=== PATIENT | male | born 1990 | race American Indian/Alaskan Native ===

== ENCOUNTER 2016-09-09 09:10 | Emergency (ER) | payer SELFPAY ==
[2016-09-09] MEDS ORDERED: KEPPRA PO ONE (09:38)
--- NOTE | 2016-09-09 09:42 | Emergency Department Report ---
HPI - General Chief Complaint: Seizure Time Seen by Provider: 09/09/16 09:29 - HPI HPI: This is a 26-year-old -[place] male who presents to the emergency department with complaint of a probable seizure this morning. Patient says that he was sleeping and then "I was out of it and when I woke up EMS was there. " Patient says that he has a history of one previous seizure last summer and was on some seizure medication but does not take it on a regular basis and had never followed up with a primary care doctor or neurologist at that time. Patient admits to biting his tongue. It is unknown how long he was "out" or had a postictal state. Patient now says he feels mostly back to baseline with a slight headache. Patient says that there was some marijuana smoked last night but otherwise no other illicit drugs and no alcohol abuse. He went to sleep without any complaints or symptoms and woke up with this probable seizure. He does not currently have a primary care doctor. He denies any other past medical history. ED Past Medical Hx - Past Medical History Previous Medical History?: Yes Hx Seizures: Yes - Surgical History Past Surgical History?: No - Social History Smoking Status: Never Smoker Substance Use Type: None - Medications Home Medications: Home Medications Medication Instructions Recorded Confirmed Last Taken Type No Known Home Medications [No 09/09/16 09/09/16 Unknown History Reported Home Medications] ED Review of Systems ROS: Stated complaint: SEIZURE Other details as noted in HPI Comment: All other systems reviewed and negative Constitutional: denies: chills, fever Eyes: denies: eye pain, eye discharge, vision change ENT: other (tongue laceration). denies: ear pain, throat pain Respiratory: denies: cough, shortness of breath, wheezing Cardiovascular: denies: chest pain, palpitations Gastrointestinal: denies: abdominal pain, nausea, diarrhea Genitourinary: denies: urgency, dysuria Musculoskeletal: denies: back pain, joint swelling, arthralgia Skin: denies: rash, lesions Neurological: headache, other (seizure). denies: weakness Physical Exam - Physical Exam Vital Signs: Vital Signs 09/09/16 09/09/16 09:15 09:34 Temperature 98.4 F Pulse Rate 90 Respiratory 18 16 Rate Blood Pressure 119/82 O2 Sat by Pulse 99 Oximetry Physical Exam: GENERAL: The patient is well-developed well-nourished. HEENT: Normocephalic. Atraumatic. Extraocular motions are intact. Patient has moist mucous membranes. Pupils equal reactive to light bilaterally. No nystagmus. Patient has a 1 cm tongue laceration to the anterior right tongue. It is linear without much of a gap and does not reach the edge of the tongue. No current bleeding. Oropharynx is clear. NECK: Supple. Trachea is midline. CHEST/LUNGS: Clear to auscultation. There is no respiratory distress noted. HEART/CARDIOVASCULAR: Regular. There is no tachycardia. There is no gallop rub or murmur. ABDOMEN: Abdomen is soft, nontender. Patient has normal bowel sounds. There is no abdominal distention. SKIN: There is no rash. There is no edema. There is no diaphoresis. NEURO: The patient is awake, alert, and oriented. The patient is cooperative. The patient has no focal neurologic deficits. The patient has normal speech and gait. Cranial nerves II through XII grossly intact. No pronator drift. MUSCULOSKELETAL: There is no tenderness or deformity. There is no limitation range of motion. There is no evidence of acute injury. Muscle strength 5 out of 5 upper and lower extremity bilaterally. ED Course Vital Signs 09/09/16 09/09/16 09:15 09:34 Temperature 98.4 F Pulse Rate 90 Respiratory 18 16 Rate Blood Pressure 119/82 O2 Sat by Pulse 99 Oximetry ED Medical Decision Making - Lab Data Result diagrams: 09/09/16 09:42 09/09/16 09:42 - EKG Data -: EKG Interpreted by Ok EKG shows normal: sinus rhythm, axis, intervals, QRS complexes, ST-T waves Rate: normal - EKG Data When compared to previous EKG there are: previous EKG unavailable Interpretation: normal EKG - Medical Decision Making 26-year-old male presents the emergency department after a seizure this morning. Patient has a history of at least one previous seizure the summer and had a negative CT head at that time in [place]. Patient has been awake and alert, AAO 3 since being in the emergency department and there has been no further seizure activity. Patient's labs have been mostly unremarkable other than some mild hyperkalemia. It is not a significant level but it is above normal so the patient was given a low dose of Kayexalate. There are no signs of infection, renal insufficiency, glucose abnormalities or thyroid dysfunction. Patient does have a tongue laceration but it does not appear to be infected and there does not appear to be any need for suturing at this time as there is no significant gap or decrease in his function. We discussed staying away from foods that are high in acid content, spicy, or foods that have small seeds that could get stuck. The patient already has a full prescription of the Keppra he is supposed to take at home. He was given multiple referrals for primary care clinics as well as 1 neurologist for follow- up regarding his seizures. We discussed staying away from alcohol and any illicit drugs as it decreases his seizure threshold. He will return to the ER with any worsening of his symptoms or any acute distress. - Differential Diagnosis seizure, TIA, substance abuse Critical Care Time: No Critical care attestation.: If time is entered above; I have spent that time in minutes in the direct care of this critically ill patient, excluding procedure time. ED Disposition Clinical Impression: Seizure, Hyperkalemia Tongue laceration Qualifiers: Encounter type: initial encounter Qualified Code(s): S01.512A - Laceration without foreign body of oral cavity, initial encounter Disposition: DISCHARGED TO HOME OR SELFCARE Is pt being admited?: No Does the pt Need Aspirin: No Condition: Stable Instructions: Recurrent Seizures Adult (ED), Epilepsy (ED), Hyperkalemia (ED) Additional Instructions: You've been given multiple referrals for primary care clinics in the area that have regular physicians for follow-up so you can establish care. I have also given you a referral for a local neurologist to follow up regarding your seizures. Please restart taking your Keppra and take it as prescribed compliantly. Any type of alcohol or drug use will decrease your seizure threshold. Return to the emergency department with any worsening of your symptoms or any acute distress. Referrals: PRIMARY CARE, [Primary Care Provider] - 3-5 Days MAGALI DENSON MD [Staff Physician] - 3-5 Days [facility] [Outside] - 3-5 Days [facility] [Outside] - 3-5 Days [facility] [Outside] - 3-5 Days Time of Disposition: 11:17
[2016-09-09 09:52] LABS: Basophils % (Auto) 0.6 % (0.0-1.8); Eosinophils % (Auto) 2.2 % (0.0-4.3); Hematocrit 47.5 % (35.5-45.6); Hemoglobin 15.3 gm/dl (11.8-15.2); Mean Corpuscular HGB Conc 32 % (32-34); Mean Corpuscular Hemoglobin 26 pg (28-32); Mean Corpuscular Volume 82 fl (84-94); Platelet Count 220 K/mm3 (140-440); Red Cell Distribution Width 14.9 % (13.2-15.2); White Blood Count 6.6 K/mm3 (4.5-11.0)
[2016-09-09 10:13] LABS: Alanine Aminotransferase 14 units/L (7-56); Albumin 4.4 g/dL (3.9-5); Albumin/Globulin Ratio 1.5 %; Alkaline Phosphatase 59 units/L (35-129); Anion Gap 21 mmol/L; Bilirubin,Total 0.3 mg/dL (0.1-1.2); Blood Urea Nitrogen 12 mg/dL (9-20); Calcium 9.6 mg/dL (8.4-10.2); Carbon Dioxide 24 mmol/L (22-30); Chloride 102.8 mmol/L (98-107); Creatine Kinase 522 units/L (55-170); Glucose 102 mg/dL (75-100); Potassium 5.3 mmol/L (3.6-5.0); Sodium 142 mmol/L (137-145); Total Protein 7.4 g/dL (6.3-8.2)
[2016-09-09] MEDS ORDERED: KAYEXALATE PO ONE (10:16)
[2016-09-09] MEDS ORDERED: TYLENOL PO ONE (10:51)
[2016-09-09] MEDS ORDERED: TYLENOL ONE (10:51)
[2016-09-09 11:22] LABS: Urine Drugs of Abuse Note Disclamer
[2016-09-09 11:36] LABS: Bilirubin,Urine NEG (Negative); Blood,Urine SM (Negative); Ketones,Urine NEG (Negative); Leukocyte Esterase,Urine NEG (Negative); Mucus,Urine FEW /HPF; Nitrite,Urine NEG (Negative); Protein,Urine <15 mg/dL mg/dL (Negative); Urobilinogen,Urine < 2.0 mg/dL (<2.0)
[2016-09-09 11:37] VITALS: BP 124/70
== END 2016-09-09 11:35 | disposition home or self-care (01) ==
LOC: ED 09:10
DX: S01.512A Laceration without foreign body of oral cavity, initial encounter (principal); R56.9 Unspecified convulsions; E87.5 Hyperkalemia; X58.XXXA Exposure to other specified factors, initial encounter; Y93.89 Activity, other specified; Y99.8 Other external cause status; Y92.89 Other specified places as the place of occurrence of the external cause
CPT/HCPCS: 36415; 80053; 81001; 82550; 84443; 85025; 93005; 93010; 99284; G0479; G0480; 80307; 80320